=== PATIENT | female | born 1975 | race Caucasian/White ===

== ENCOUNTER 2025-06-16 09:37 | Emergency (ER) | payer MEDICAID ==
[~2025-06-16] VITALS: Ht 160 cm; Wt 65.0 kg
[2025-06-16 09:45] VITALS: O2SAT 100
[2025-06-16 10:28] LABS: BASOPHILS % 0.2 % (0.0-2.0); EOSINOPHILS % 0.7 % (0.0-5.0); HEMATOCRIT. 42.7 % (36.0-48.0); HEMOGLOBIN. 14.2 g/dL (12.0-16.0); LYMPHOCYTES % 17.9 % (20.0-50.0); MEAN PLATELET VOLUME 7.3 fl (7.4-10.4); MONOCYTES % 6.4 % (2.0-8.0); NEUTROPHILS % 74.8 % (40.0-76.0); PLATELET 243 x1000/uL (130-400); RED BLOOD CELL COUNT 4.67 mill/uL (4.2-5.4); RED CELL DISTRIBUTION WIDTH 13.1 % (11.6-14.6)
[2025-06-16 10:43] LABS: CREATININE 0.8 mg/dL (0.6-1.0); UREA NITROGEN BLOOD 14 mg/dL (9-23)
[2025-06-16 10:44] LABS: ASPARTATE AMINOTRANSFERASE 20 IU/L (<34); BILIRUBIN DIRECT < 0.1 mg/dL (<=3.0); BILIRUBIN TOTAL 0.4 mg/dL (0.1-1.0); TROPONIN I HIGH SENSITIVITY < 4 ng/L (3.0-34)
[2025-06-16 10:45] LABS: PROTEIN TOTAL 6.9 g/dL (6.0-8.3)
[2025-06-16] MEDS ORDERED: NITROGLYCERIN 0.4MG TABLET SL SL SCH (11:00)
[2025-06-16 11:06] LABS: HCG SCREEN NEGATIVE
[2025-06-16] MEDS: ASPIRIN 325MG TABLET PO SCH (11:19)
[2025-06-16 12:33] LABS: TROPONIN I HIGH SENSITIVITY < 4 ng/L (3.0-34)
[2025-06-16 13:09] VITALS: BP 159/77; PULSE 72; RESP 16; TEMP 36.9; O2SAT 100
== END 2025-06-16 13:36 | disposition home or self-care (01) ==
LOC: ER 09:37
DX: R07.89 Other chest pain (principal); M25.512 Pain in left shoulder; M25.511 Pain in right shoulder
CPT/HCPCS: 36415; 71045; 80048; 80076; 83735; 84484; 84703; 85025; 85379; 93005; 99285